=== PATIENT | male | born 2005 | race Caucasian/White ===

== ENCOUNTER 2024-09-16 02:32 | Emergency (ER) | payer OTHER, SELFPAY ==
--- OUTSIDE RECORDS SUMMARY | 2024-09-16 02:34 | XMS_ITS | Clinical Summary ---
Author Organization [employer] [facility] [employer] [facility] Address [address] [place] [address] Care Team Providers Care Seconds Handler Name Role Phone Rosa Urias MD Primary Care Provi barbi Allergies No known active allergies Medications No known medications Active Problems Problem Noted Date Diagnosed Date Radial fracture 11/02/2021 Fracture of ulnar styloid 11/02/2021 Heart murmur 03/21/2015 Overview (06/10/2017): Echocardiogram normal in 02/2015 Hypermetropia 09/05/2012 Resolved Problems Problem Noted Date Diagnosed Date Resolved Date Trace tricuspid regurgitatio n by prior echocardiogram 05/07/2016 06/10/2017 Overview (06/10/2017): Reread of echocardiogram from 2014 was read as normal echocardiogram. Pulmonary insufficiency 05/07/201605/17 Overview (06/10/2017): Reread of echocardiogram from 2014 said echocardiogram was normal. Clavicle fracture, shaft 08/10/2009 Unspecified dental caries 09/16/2006 Immunizations Immunization Administration Dates Next Due AMB Influenza, IIV3 (Age >=3 years)(Flu Clinic Only) 02/19/2011 BCG Vaccine (Percutaneous) 2003 DTaP-HIB (TriHIBIT) 12/05/2005, 5,03/21/2004,01/20 DTaP-IPV (Kinrix) 07/04/2009 HPV 9 (Gardasil 9) 08/19/2015,03/25/2015, 015 Hepatitis A (Peds) 12/12/2007,06/12/2007 Hepatitis B (Peds) 05/19/2004,03/21/2004, 004 Inactivated Polio Vaccine 05/19/2004,03/21/2004, 01/21/2004 Influenza A (H1N1), Inactiva roel (Age >=3 Years) 03/09/2009,02/04/2009 Influenza, IIV3 (Age >=3 years) 01/27/20 13,02/04/2012,12/28/2009,12/11 Influenza, IIV4 01/29/2017,02/15/2015,12/07/2013 Influenza,LAIV4 Live Intrana teo (Flumist) 12/20/2008 MENINGOCOCCAL VACCINE 2 VIAL 2MO-55YO (MENVEO) 11/16/2019,05/07/2016 MMR 12/05/2005,11/19/2004 Pneumococcal conj 13-Valent (Prevnar 13) 07/04/2009 Tdap 02/15/2015 Varicella Vaccine 07/04/2009,06/12/2007 Family History Medical History Relation Name Comments Hyperlipidemia Maternal Grandfather Heart Disease Maternal Grandmother Diabetes Other paternal great grandma Good Health Sister Asthma No Family History Relation Name Status Comments Maternal Grandfather Maternal Grandmother Other Sister Social History Tobacco Use Types Packs/Day Years Used Date Smoking Tobacco: Never Smokeless Tobacco: Never Tobacco Cessation:Counseling Given: Yes Comments:no exposure Alcohol Use Standard Drinks/Week Comments Never 0 (1 standard drink = 0.6 oz pur e alcohol) PHQ-2 Answer Date Recorded PHQ-2 TOTAL SCORE 0 07/10/2022 Financial Resource Strain Answer Date R ecorded Difficulty of Paying Living Expenses Not on file 03/08/2021 Difficulty of Paying Living Expenses Not on file 03/08/2021 Sex and Gender Information Value Date Recorded Sex Assigned at Not on file Legal Sex Male 7:15 AM [employer] Gender Identity Not on file Sexual Orientation Not on file Obstetrics History Last Filed Vital Signs Vital Sign Reading Time Taken Comments Blood Pressure 122/71 07/10/2022 2:39 PM CDT Pulse 61 07/10/2022 2:39 PM CDT Temperature 36.3 C (97.4 F) 07/10/2022 2:39 PM CDT Respiratory Rate 20 09/16/2006 4:37 PM CDT Oxygen Saturation 100% 07/10/2022 2:39 PM CDT Inhaled Oxygen Concentration - - Weight 79.6 kg (175 lb 6.4 oz) 07/10/2022 2:39 P M CDT Height 177.3 cm (5' 9.8) 07/10/2022 2:39 PM CDT Body Mass Index 25.31 07/10/2022 2:39 PM CDT Plan of Treatment Health Maintenance Due Date Last Done Comments HIV for age 15-65 11/19/2018 Well Child Check for age 3-20 11/15/2020 11/16/2019, 10/30/2018, 06/10/2017, Additional history exists Hepatitis C screening for age 18-79 11/19/2021 BMI (ht and wt on same day) for age 18+ 07/11/2023 07/10/2022 Depression screening for age 12+ 07/11/2023 07/10/2022, 11/16/2019, 10/30/2018, Additional history exists COVID-19 vaccine series ( season) 2023 Influenza Vaccine (#1) 2024 7, 02/15/2015, 12/07/2013, Additional history exists Tetanus booster 02/15/2025 02/15/2015 Hepatitis B series for 19+ Completed 05/19, 03/21/2004, 01/21/2004 Pneumococcal series for age 6-49 Aged Out 07/04/2009 No longer eligible based on patient's age to complete this topic HPV series for age 9-26 Completed 08/19/19 16, 03/25/2015, 02/15/2015 Meningococcal series for age 11-21 Completed 11/16/2019, 05/07/2016 Insurance MEDICAID [place] MED[place]ID [place] Advance Directives * Full Code (Latest Code Status on File) Date Activated Date Inactivated Comments 09/16/2006 3:08 PM 09/16/2006 6:41 PM Care Teams Seconds Handler Relationship Specialty Start Date End Date Rosa Urias MD [address] [place] [id number] PCP - General 02/06/10
[2024-09-16 02:37] VITALS: BP 135/78; PULSE 78; RESP 18; TEMP 36.9; O2SAT 99; BMI 23.7
--- NOTE | 2024-09-16 02:40 | ED_ITS ---
HPI - General Adult General Time Seen by Provider: 02:42 Date Seen: 09/16/24 Chief complaint: Insect Bite Stated complaint: Bee sting left arm Time Seen by Provider: 09/16/24 02:40 Source: patient, RN notes reviewed and old records reviewed Mode of arrival: ambulatory Limitations: no limitations History of Present Illness HPI narrative: 18-year-old male who comes in today after bee sting day before yesterday, areas itchy. Notes some lightheadedness proves no tongue or lip swelling, no cough, shortness of breath. Related Data Home Medications ?Medication ?Instructions ?Recorded ?Confirmed No Known Home Medications 09/16/24 0705/12 Allergies Allergy/AdvReac Type Severity Reaction Status Date / Time No Known Drug Allergies Allergy Verified 09/16/24 02:39 [facility] Medical History (Updated 09/16/24 @ 02:43 by Dillon Neff MD) No significant past medical history Surgical History (Updated 09/16/24 @ 02:41 by Marcos Montgomery RN) No significant past surgical history Exam Narrative: Exam Narrative: General: well nourished , NAD Head: Atraumatic and normocephalic ENT: External ears and external nose are normal Eyes: Conjunctiva clear, pupils are equal reactive, external ocular motions are intact Neck: Full spontaneous range of motion of the neck Lungs: No respiratory distress Musculoskeletal: No tenderness or deformity Neurologic: No gross focal neurologic deficits Skin: 14 cm by 12 cm area of erythema of the left flexor surface of the arm with a central puncture Psych: Mood and affect are appropriate Const: Vital Signs, click to edit/add: Vital Signs - 24 hr 09/16/24 02:37 Temperature 98.4 F Pulse Rate [Right Pulse Oximeter] 78 Respiratory Rate 18 Blood Pressure [Ri ght Upper Arm] 135/78 Pulse Oximetry 99 Oxygen Delivery Me thod Room Air Course Course ED Course: Patient seen and examined, presents today with a bee sting of the left forearm. He has a large local reaction but no evidence of allergic reaction or anaphylaxis. We discussed wound care including washing the area gently is in water, cool packs, Benadryl orally, and Tylenol and ibuprofen as needed. Stable for discharge. Vital Signs Vital signs: Initial Vital Signs Temperature 98.4 F 09/16/24 02:37 Temperature Source Temporal Artery Scan 09/16/24 02:37 Pulse Rate 78 07/02/25 02:37 Respiratory Rate 18 09/16/24 02:37 Blood Pressure 135/78 09/16/24 02:37 Blood Pressure Mean 97 09/16/24 02:37 Blood Pressure Position Sitting 09/16/24 02:37 Pulse Oximetry 99 09/16/24 02:37 Oxygen Delivery Method Room Air 09/16/24 02:37 Vital Signs Temperature 98.4 F 09/16/24 02:37 Pulse Rate 78 09/16/24 02:37 Respiratory Rate 18 09/16/24 02:37 Blood Pressure 135/78 09/16/24 02:37 Pulse Oximetry 99 09/16/24 02:37 Oxygen Delivery Method Room Air 09/16/24 02:37 Temperature 98.4 F 09/16/24 02:37 Pulse Rate 78 09/16/24 02:37 Respiratory Rate 18 09/16/24 02:37 Blood Pressure 135/78 09/16/24 02:37 Pulse Oximetry 99 09/16/24 02:37 Oxygen Delivery Method Room Air 09/16/24 02:37 Discharge Plan Discharge Clinical Impression: Insect bites and stings Patient Disposition: Home, Self-Care Condition: Stable Instructions: Insect Bite or Sting (ED) Additional Instructions: Apply cool packs to the area Take Tylenol and ibuprofen as needed for pain Take Benadryl 50 mg every 6 hours Activity Level: No Restrictions Discharge Diet: Regular Prescriptions: No Action No Known Home Medications Follow Up/Referrals: Rosa Urias MD [Primary Care Provider, Pediatrics] Stand Alone Forms: MyHealth Info Instructions
[2024-09-16 02:50] VITALS: BP 135/78; PULSE 78; RESP 18; TEMP 36.9
== END 2024-09-16 02:50 | disposition home or self-care (01) ==
LOC: ED 02:48
PROVIDERS: Emergency Provider Family Medicine; PCP Pediatrics
DX: T63.441A Toxic effect of venom of bees, accidental (unintentional), initial encounter (principal); R42 Dizziness and giddiness
CPT/HCPCS: 99282; 99283